=== PATIENT | female | born 1970 | race Caucasian/White ===

== ENCOUNTER 2018-02-06 09:36 | Day surgery (SDC) | payer OTHER ==
[~2018-02-06 09:36] MED LIST: CEFAZOLIN 1 GM/D5W RTU 1 GM/50 ML RTUPB IV PRN; LACTATED RINGERS 1000 ML IV PRN; LIDOCAINE 0.5% INJ-PF (5 MG/ML) 50 ML SDV SUBCUT PRN; RINGERS SOLUTION,LACTATED 250 ML IV PRN
[2018-02-06] MEDS ORDERED: SCOPOLAMINE HYDROBROMIDE 1.5 MG PATCH.TD72 TD ONE (10:30)
[2018-02-06] MEDS ORDERED: CARBOXYMETHYLCELLULOSE SOD 0.5% 0.4 ML DROPERETTE ONE (10:46)
[2018-02-06] MEDS ORDERED: MIDAZOLAM 2 MG/2 ML INJ ONE (10:46)
[2018-02-06] MEDS ORDERED: FENTANYL CITRATE INJ/PF 100 MCG/2 ML AMPUL ONE ×3 (10:47→14:58)
[2018-02-06] MEDS ORDERED: ONDANSETRON HCL INJ/PF 4 MG/2 ML SDV ONE (10:47)
[2018-02-06] MEDS ORDERED: DEXMEDETOMIDINE INJ 80 MCG/20 ML VIAL IV ONE (10:48)
[2018-02-06] MEDS ORDERED: DEXAMETHASONE SOD PHOS INJ 10 MG/1 ML VIAL ONE (10:48)
[2018-02-06] MEDS ORDERED: PROPOFOL INJ 200 MG/20 ML VIAL IV ONE (10:48)
[2018-02-06] MEDS ORDERED: SUCCINYLCHOLINE CHLORIDE INJ 200 MG/10 ML VIAL ONE (10:48)
[2018-02-06] MEDS ORDERED: BUPIVACAINE HCL 0.5%/EPI 1:200000 INJ 1.8 ML CARTRIDGE ONE (10:52)
[2018-02-06] MEDS ORDERED: MINERAL OIL (STERILE) 10 ML VIAL ONE (10:52)
[2018-02-06] MEDS ORDERED: OXYMETAZOLINE HCL 0.05% NASAL SPRAY 15 ML BOTTLE ONE (10:53)
[2018-02-06] MEDS ORDERED: BUPIVACAINE HCL 0.5%-EPI 1:200000 INJ/PF 30 ML VIAL ONE (11:47)
[2018-02-06] MEDS ORDERED: RACEPINEPHRINE HCL 2.25% NEB 0.5 ML AMPUL NEB ONE (15:38)
--- NOTE | 2018-02-13 15:45 | SURGICARE OPERATIVE REPORT E ---
[facility] Operative Report NAME: MAURA ANDINO AGE: 47Y DATE OF SURGERY: 02/06/2018 ROOM: PREOPERATIVE DIAGNOSES: 1. Acute recurrent sinusitis. 2. Chronic sinusitis. 3. Nasal septal deviation acquired. 4. Chronic nasal dyspnea. 5. Turbinate hypertrophy inferior and middle turbinates. POSTOPERATIVE DIAGNOSES: 1. Acute recurrent sinusitis. 2. Chronic sinusitis. 3. Nasal septal deviation acquired. 4. Chronic nasal dyspnea. 5. Turbinate hypertrophy inferior and middle turbinates. OPERATIONS PERFORMED: 1. Functional endoscopic sinus surgery with left maxillary antrostomy with rigid transnasal diagnostic endoscopy. 2. Functional endoscopic sinus surgery with right maxillary balloon sinuplasty with rigid transnasal diagnostic endoscopy. 3. Septoplasty. 4. Bilateral refraction. 5. Left middle turbinate reduction. 6. Bilateral inferior turbinate reduction using a submucous resection technique. SURGEON: JULIETTE ALLISON D.O. ANESTHETIC: General endotracheal tube. ANESTHESIA STAFF: RAIMUNDO PORTER ESTIMATED BLOOD LOSS: 60 mL. FLUIDS: 1200 mL. COMPLICATIONS: None. DRAINS: None. SPONGE COUNT: Verified. NEEDLE COUNT: Verified. MATERIALS FORWARDED SPECIMEN: None. FINDINGS: 1. Right nasal septal deviation involving bone and cartilage along with a right maxillary prep/septal spur. 2. Bilateral inferior turbinate hypertrophy and bilateral middle turbinate hypertrophy. 3. There was no sign of nasal polyps or disease noted and there was no sinus discharge noted. INDICATIONS: This is a 47-year-old white female who has been seen, evaluated, and followed in the [facility]. The patient was referred for and she complained of a history of acute recurrent sinusitis episodes requiring antibiotics each year over the years. The patient also reports a history of chronic sinusitis type symptoms over the years. She also complained of a history of chronic nasal dyspnea. The patient underwent CT sinus imaging and bilateral transnasal endoscopy. After extensive discussion with the patient, recommendations and plan was to proceed with functional endoscopic sinus surgery, septoplasty, and bilateral middle and inferior turbinate reductions. The procedures and all of their risks and complications were all discussed in detail with the patient. She voiced an understanding of the described surgical plan, agreed to proceed, and consent was obtained. PROCEDURE: The patient was taken to the main operating room and placed on the operating room table in the supine position. Appropriate monitors were placed. Using mask and IV access, general anesthesia was induced. The patient was then transorally intubated without difficulty. The patient and table was positioned for nasal and sinus surgery. The patient underwent a nasal examination with injection of local anesthetic with epinephrine to establish a nasal block. Two Afrin-soaked neuro patties were placed through her nasal passage. Attention was then prepped and draped in the usual fashion for nasal and sinus surgery. At this point, the neuro patties were removed and the patient underwent a hemitransfixed incision with elevation of the mucoperichondrial and mucoperiosteal flaps without difficulty. The bony cartilaginous junction was identified and divided. The most deviated portions of bone and cartilage were removed without difficulty. Due to the extent of the right maxillary crest spur/septal spur, there was an extended rent which occurred despite delicate dissection and tissue elevation. The bony deformities were removed. At this point, the turbinate bipolar wand was used to make 2 passes in each inferior turbinates. Next, the anterior aspect was entered with Jose scissors followed by elevation of tissue in the submucosal plane with a [place] elevator. The turbinate microdebrider system at a setting of 1500 RPM was used to perform submucous resection on each side. Next, a Carlos elevator was used to outfracture each inferior turbinate. The redundant mucosa was trimmed and the margins were reapproximated with running suture. At this point, the functional endoscopic sinus surgery portion of the case was addressed in the following manner. With use of 0- and 30-degree rigid endoscopes, bilateral transnasal rigid diagnostic endoscopy was utilized during the sinus surgery portion of the case. Using a microdebrider and sinus surgery instruments under direct visualization, the left maxillary antrostomy was created without difficulty. The balloon sinuplasty system was introduced and the right maxillary balloon sinuplasty portion of the case was addressed with balloon dilation to 12 atmospheres in 2 positions. Once complete, the balloon system was withdrawn. There were numerous unsuccessful attempts to dilate the frontal sinus recessed area. Sinus surgery instruments and the microdebrider were also used to perform a left middle turbinate reduction without difficulty. Once complete, a modified Merocel pack was inserted into the left nasal passage and left maxillary antrostomy site and a Mccauley splint was inserted into the right nasal passage, each with bacitracin ointment. Previously removed separate cartilage was placed back between the mucosal flaps and . The mucosal rents were reapproximated with suture as was the hemitransfixion incision. The Mccauley splint and Merocel pack were secured at the caudal aspect with 4-0 Prolene sutures. The patient's nose was then cleaned and dried. She was then returned to the anesthesia staff and allowed to emerge from general anesthesia. The patient was extubated in the main operating room and was then transported to the post-anesthesia recovery unit in stable condition. There were no complications. DICTATING PHYSICIAN: JULIETTE ALLISON D.O. [id number] PHY#: [id number] ID: [id number] JOB#: [id number] ACCT: [id number] cc:JULIETTE ALLISON D.O. >
== END 2018-02-06 16:15 | disposition home or self-care (01) ==
LOC: SC 09:36
PROVIDERS: ATTEND Otolaryngology
DX: J01.91 Acute recurrent sinusitis, unspecified (principal); J34.2 Deviated nasal septum; J34.89 Other specified disorders of nose and nasal sinuses; J34.3 Hypertrophy of nasal turbinates; R06.09 Other forms of dyspnea; M19.90 Unspecified osteoarthritis, unspecified site; Z79.1 Long term (current) use of non-steroidal anti-inflammatories (NSAID); Z88.5 Allergy status to narcotic agent
CPT/HCPCS: 31256; 30520; 30140; 31295; J2250; J3490 ×7; J0690; J3010; J0330; J2405; J2704; J1100; 160

== ENCOUNTER 2019-01-16 09:09 | Day surgery (SDC) | payer OTHER ==
[~2019-01-16 09:09] MED LIST changes: -CEFAZOLIN 1 GM/D5W RTU 1 GM/50 ML RTUPB IV PRN; +DEXAMETHASONE SOD PHOS INJ 10 MG/1 ML VIAL ONE; +FENTANYL CITRATE INJ/PF 100 MCG/2 ML AMPUL ONE; -LACTATED RINGERS 1000 ML IV PRN; -LIDOCAINE 0.5% INJ-PF (5 MG/ML) 50 ML SDV SUBCUT PRN; +LIDOCAINE 1% INJ-PF (10 MG/ML) 30 ML SDV ONE; +MIDAZOLAM 2 MG/2 ML INJ ONE; +ONDANSETRON HCL INJ/PF 4 MG/2 ML SDV ONE; +PROPOFOL INJ 200 MG/20 ML VIAL IV ONE; -RINGERS SOLUTION,LACTATED 250 ML IV PRN; +ROCURONIUM BROMIDE INJ 50 MG/5 ML VIAL IV ONE; +SUCCINYLCHOLINE CHLORIDE INJ 200 MG/10 ML VIAL ONE
[2019-01-16] MEDS ORDERED: MIDAZOLAM 2 MG/2 ML INJ ONE (10:56)
[2019-01-16] MEDS ORDERED: DIPHENHYDRAMINE HCL 50 MG/ML VIAL ONE (10:56)
[2019-01-16] MEDS ORDERED: BUPIVACAINE HCL 0.5%/EPI 1:200000 INJ 1.8 ML CARTRIDGE ONE (10:59)
[2019-01-16] MEDS ORDERED: BACITRACIN ZINC OINTMENT 15 GM ONE (10:59)
[2019-01-16] MEDS ORDERED: LIDOCAINE 2%/EPINEPHRINE INJ 20 ML VIAL ONE (11:16)
[2019-01-16] MEDS ORDERED: MINERAL OIL (STERILE) 10 ML VIAL ONE (12:06)
--- NOTE | 2019-01-26 13:54 | SURGICARE OPERATIVE REPORT E ---
[facility] Operative Report NAME: MAURA ANDINO AGE: 48Y DATE OF SURGERY: 01/16/2019 ROOM: PREOPERATIVE DIAGNOSES: 1. Bilateral ear deformities. 2. Bilateral ear cysts 3. Chronic bilateral ear pain and pruritus. POSTOPERATIVE DIAGNOSIS: 1. Bilateral ear deformities. 2. Bilateral ear cysts. 3. Chronic bilateral ear pain and pruritus. OPERATION PERFORMED: 1. Complex repair of bilateral ear deformities. 2. Excision of bilateral ear cysts. SURGEON: JULIETTE ALLISON D.O. ANESTHETIC: General LMA anesthesia. ANESTHESIA STAFF: CHARLOTTE Gutierrez ESTIMATED BLOOD LOSS: 1 mL. *------* COMPLICATIONS: None. DRAINS: None. SPONGE COUNT: Verified. NEEDLE COUNT: Verified. MATERIALS FORWARDED SPECIMEN: Multiple left and multiple right ear cyst specimens. FINDINGS: 1. Left ear deformity involved the earlobe measuring 1.5 cm and right ear deformity measuring 1.5 cm. 2. Multiple small cysts removed from area of the earlobe on the left and right sides and appearing consistent with EIC/epidermal inclusion cysts. INDICATIONS: This is a 48-year-old white female who has been seen, evaluated, and then followed in the [facility]. The patient is with a longstanding history of cysts that affect not only her ears but the area around her ears over the years. The patient has had multiple cyst excision procedures at her ears and around her ears over the years. The patient is also with bilateral ear deformities affecting her earlobes, which are becoming worse again and causing chronic pain and pruritus, itching. The patient underwent a primary repair 1 year ago in a clinic setting. After extensive discussion with the patient recommendation and plan was for definitive management in an operating room setting to allow for removal of multiple cysts from each ear and to allow definitive surgical management of the ear deformities, which she voiced an understanding of and agreed with. The procedures and their risks and complications were all discussed in detail with the patient. She voiced an understanding, desired to proceed, and consent was obtained. PROCEDURE: The patient was taken to the main operating room and was placed on the operating room table in the supine position. Appropriate monitors were placed. Using mask and IV access, general LMA anesthesia was established. The patient's ears were marked and infiltrated with local anesthetic with epinephrine. At this point the patient was prepped and draped in a sterile fashion for bilateral ear surgery. The bilateral earlobe deformities were excised in a wedge excision fashion removing a central wedge portion of tissue. Next, the earlobes were probed and cystic components were dissected free from surrounding tissue and removed. Once cystic components could no longer be palpated the ears were reapproximated/repaired in a complex layered fashion. Monocryl suture was used for deep reapproximation of tissues. Excess/redundant tissue was trimmed. The anterior and low margins were reapproximated with 6-0 Prolene suture. The posterior aspect of tissue was reapproximated with 5-0 chromic suture. Once complete measurements were taken and each earlobe was pierced followed by placement of an earring with post. The ears next had bacitracin ointment applied. She was returned to the anesthesia staff and was allowed to emerge from general LMA anesthesia. She was then transported to the postanesthesia recovery unit in stable condition. There were no complications. DICTATING PHYSICIAN: JULIETTE ALLISON D.O. [id number] PHY#: [id number] ID: [id number] JOB#: [id number] ACCT: [id number] cc:JULIETTE ALLISON D.O. >
== END 2019-01-16 15:14 | disposition home or self-care (01) ==
LOC: SC 09:09
PROVIDERS: ATTEND Otolaryngology
DX: D17.0 Benign lipomatous neoplasm of skin and subcutaneous tissue of head, face and neck (principal); L72.8 Other follicular cysts of the skin and subcutaneous tissue; G89.29 Other chronic pain; Z88.5 Allergy status to narcotic agent
CPT/HCPCS: 88304 ×2; 69110; J2250; J3490 ×3; J1200; J3010; J2405; J2704; J1100; 120; J0330

== ENCOUNTER → 2019-07-19 | Outpatient (CLI) | payer OTHER ==
--- NOTE | 2019-07-19 11:24 | RADIOLOGY REPORT (SQ) ---
EXAM DESCRIPTION: MRI LT LOWER JOINT WITHOUT COMPLETED DATE/TIME: 07/19/2019 11:04 am REASON FOR STUDY: SYNOVIAL CYST OF LEFT POPLITEAL SPACE (M71.22) M79.661 PAIN IN LEFT LOWER LEG COMPARISON: None. TECHNIQUE: Leftknee images acquired and stored on PACS. Multiplanar images include fat sensitive se quences as T1, water sensitive sequences as FST2 or STIR, cartilage sensitive sequences as FSPD, and gradient echo sequences. LIMITATIONS: Motion. FINDINGS: JOINT AND BURSAE: No effusion. BONE CORTEX AND MARROW: No alteration of signal to suggest marrow replacement. No worrisome bone lesi ons. No occult fracture. ACL: Intact. No degeneration or ganglion cyst. PCL: Intact. MCL: Intact. No periligamentous edema or fluid. LCL: Intact. No periligamentous edema or fluid. MEDIAL MENISCUS: No tear identified. LATERAL MENISCUS: No tear identified. MEDIAL COMPARTMENT: 14 mm osteochondral lesion with high T2 signal rim articular surface femoral cond yle. Small osteophytes. LATERAL COMPARTMENT: Cartilage relatively preserved. No bone bruises or reactive marrow edema. No ost eophytes. PATELLA: Thinning of the patellar cartilage. No large osteophytes or subchondral edema. EXTENSOR MECHANISM: Intact. Quadriceps and patella tendons normal. SOFT TISSUES: Adjacent muscles and subcutaneous tissues normal. Normal flow void in popliteal artery and vein. OTHER: Small Harris cyst measuring just over 1 cm in maximum diameter. IMPRESSION: 1. Large osteochondral lesion medial femoral condyle. Mild osteoarthritis medial compartment. 2. Small Harris cyst. TECHNICAL DOCUMENTATION: JOB ID: [id number] [employer]- All Rights Reserved Reading location - IP/workstation name: [email or web address]
--- NOTE | 2019-07-19 12:37 | RADIOLOGY REPORT (SQ) ---
EXAM DESCRIPTION: HAND BILATERAL 3 VIEWS COMPLETED DATE/TIME: 07/19/2019 12:08 pm REASON FOR STUDY: PAIN IN FINGERS ON BOTH HANDS (M79.645) M79.662 PAIN IN LEFT LOWER LEG COMPARISON: None. EXAM PARAMETERS: NUMBER OF VIEWS: Six views. TECHNIQUE: AP, lateral and oblique radiographic images acquired of the right and left hand. LIMITATIONS: Jewelry overlying right 2nd phalanx. FINDINGS: MINERALIZATION: Normal. BONES: No acute fracture or dislocation. No worrisome bone lesions. No significant osteophytes. JOINTS: Mild joint space narrowing several interphalangeal joints. SOFT TISSUES: No swelling. No calcifications. OTHER: No other significant finding. IMPRESSION: Early osteoarthritic changes. TECHNICAL DOCUMENTATION: JOB ID: [id number] [employer]- All Rights Reserved Reading location - IP/workstation name: [email or web address]
== END ==
LOC: LAB 09:50
PROVIDERS: ATTEND Physician Assistant Medical
DX: M71.22 Synovial cyst of popliteal space [Baker], left knee (principal); M17.12 Unilateral primary osteoarthritis, left knee; M19.042 Primary osteoarthritis, left hand; M19.041 Primary osteoarthritis, right hand
CPT/HCPCS: 36415; 85379